=== PATIENT | female | born 1960 | race Caucasian/White ===

== ENCOUNTER 2023-12-19 21:29 | Emergency (ER) | payer SELFPAY ==
[~2023-12-19] VITALS: Ht 157.5 cm; Wt 57.0 kg
[2023-12-19 21:45] VITALS: TEMP 98; O2SAT 98
[2023-12-20] MEDS: IBUPROFEN 600MG TABLET PO ONE (00:03)
[2023-12-20] MEDS ORDERED: IBUP-2029 MT (00:20)
[2023-12-20 01:27] VITALS: BP 135/57; PULSE 83; RESP 20; O2SAT 100
== END 2023-12-20 01:27 | disposition home or self-care (01) ==
LOC: ER 21:29
DX: S83.92XA Sprain of unspecified site of left knee, initial encounter (principal); E11.9 Type 2 diabetes mellitus without complications; V03.10XA Pedestrian on foot injured in collision with car, pick-up truck or van in traffic accident, initial encounter; Y93.89 Activity, other specified; Y92.89 Other specified places as the place of occurrence of the external cause; Y99.8 Other external cause status
CPT/HCPCS: 73560; 73610; 99284